=== PATIENT | female | born 1945 | race Caucasian/White ===

== ENCOUNTER 2017-01-18 01:20 | Emergency (ER) | payer OTHER ==
[~2017-01-18] VITALS: Ht 162.6 cm; Wt 65.0 kg
[~2017-01-18 01:20] MED LIST: BUSPAR10 MG PO; BUTRANS1 EAC1 TD; CLARITIN10 MG PO; CYCLOBENZAPRINE10 MG PO; EVISTA60 MG PO; EXFORGE 10/11 TABLET PO; EXFORGE 5/161 TABLET PO; FLONASE16 G1 BOTH NARES; FLONASE16 GM NS; FLUOXETINE HCL20 MG PO; FLUOXETINE HCL40 MG PO; GABAPENTIN300 MG PO; HYDROMORPHONE HC2 MG PO; MORPHINE SULFAT15 M1 PO; MUCINEX; MUCINEX100 MG PO; OXYCODONE HCL10 M1 PO; OXYCODONE10 MG PO; PRAVASTATIN SOD20 MG PO; PREDNISONE20 MG PO; PRISTIQ50 MG PO; PULMICORT1 MG/2 ML IH; TRAZODONE HCL300 MG PO; VALIUM5 MG PO; XANAX XR1 MG PO
[2017-01-18] MEDS ORDERED: NASACORT10.8 ML BOTH NARES (01:32)
[2017-01-18] MEDS ORDERED: BUSPIRONE HCL10 MG PO (01:32)
[2017-01-18] MEDS ORDERED: ESOMEPRAZOLE MA40 MG PO (01:33)
[2017-01-18 02:33] LABS: HEMATOCRIT 39.9 % (36.0-46.0); MCH 26.5 PG (29.0-34.0); MCHC 32.8 G/DL (30.0-36.0); MCV 80.8 FL (83-99); PLATELET COUNT 339 K/uL (156-360); RBC DIS.WIDTH-CV 15.3 % (11.8-14.6); RBC DIS.WIDTH-SD 44.4 % (39-53); RED BLOOD COUNT 4.94 M/uL (3.80-5.20); WHITE BLOOD COUNT 13.7 K/uL (4.1-10.2)
[2017-01-18 02:37] LABS: CHLORIDE 102 mEq/L (99-109); SODIUM 133 mEq/L (136-147)
[2017-01-18 02:39] LABS: GLUCOSE 137 mg/dL (70-99)
[2017-01-18 02:40] LABS: ANION GAP 12 MEQ/L (2-14)
[2017-01-18 02:41] LABS: TOTAL BILIRUBIN 0.2 mg/dL (0.0-1.0)
[2017-01-18 02:42] LABS: ALKALINE PHOSPHATASE 92 IU/L (3-129)
[2017-01-18 02:43] LABS: GFR ESTIMATE (CALCULATED) > 59 mL/min/
[2017-01-18 02:44] LABS: UREA NITROGEN (BUN) 12 mg/dL (9-23)
[2017-01-18 02:46] LABS: LIPASE 54 U/L (1.0-51.0)
[2017-01-18 02:53] LABS: ADD MIUA? YES; BILIRUBIN NEGATIVE; BLOOD NEGATIVE; COLOR YELLOW ((YELLOW)); GLUCOSE (STRIP) NEGATIVE; KETONES NEGATIVE; LEUKOCYTES SMALL; NITRITE NEGATIVE; PROTEIN (STRIP) NEGATIVE; SPECIFIC GRAVITY 1.009 (1.000-1.030); UROBILINOGEN 0.2 MG/DL (0.2-1.0)
[2017-01-18 03:03] LABS: BACTERIA RARE /HPF; EPITHELIAL CELLS 2+ /HPF; MUCUS TRACE /LPF; RED BLOOD CELLS 0-5 /HPF (0-5); UCUL ADDED? NO
[2017-01-18] MEDS ORDERED: ZOFRAN8 MG PO (04:04)
[2017-01-18 04:30] VITALS: BP 139/84
== END 2017-01-18 04:33 | disposition home or self-care (01) ==
LOC: EME 01:20
PROVIDERS: Emergency Medicine
DX: R11.2 Nausea with vomiting, unspecified (principal); E87.1 Hypo-osmolality and hyponatremia; E86.0 Dehydration; S93.402A Sprain of unspecified ligament of left ankle, initial encounter; X50.9XXA Other and unspecified overexertion or strenuous movements or postures, initial encounter; Y99.8 Other external cause status; J45.909 Unspecified asthma, uncomplicated; I10 Essential (primary) hypertension; K21.9 Gastro-esophageal reflux disease without esophagitis; Z88.8 Allergy status to other drugs, medicaments and biological substances; Z88.6 Allergy status to analgesic agent; Z88.5 Allergy status to narcotic agent; Z91.048 Other nonmedicinal substance allergy status; Z98.1 Arthrodesis status
CPT/HCPCS: 73610; 74177; 80053; 81003; 83690; 85027; 99281; 99285; J2405; J7030